=== PATIENT | male | born 1955 | race Caucasian/White ===

== ENCOUNTER 2020-08-27 14:13 | Inpatient (IN) | payer OTHER, MEDICARE ==
[~2020-08-27] VITALS: Ht 175.3 cm; Wt 89.4 kg
[2020-08-27 14:44] LABS: BASOPHILS ABSOLUTE AUTO 0.07 K/mm3 (0.00-0.23); BASOPHILS PERCENT AUTO 1 % (0-2); EOSINOPHILS ABSOLUTE AUTO 0.08 K/mm3 (0.00-0.68); EOSINOPHILS PERCENT AUTO 1 % (0-6); Hematocrit 41.4 % (37.0-53.0); Hemoglobin 13.6 g/dL (13.5-17.5); IMMATURE GRAN ABSOLUTE AUTO 0.08 K/mm3 (0.00-0.10); IMMATURE GRAN PERCENT AUTO 1 % (0-1); LYMPHOCYTES ABSOLUTE AUTO 2.35 K/mm3 (0.84-5.20); LYMPHOCYTES PERCENT AUTO 18 % (21-46); MONOCYTES ABSOLUTE AUTO 1.16 K/mm3 (0.16-1.47); MONOCYTES PERCENT AUTO 9 % (4-13); Mean Corpuscular HGB 29.4 pg (26.0-34.0); Mean Corpuscular HGB Conc 32.9 g/dL (31.5-36.5); Mean Corpuscular Volume 89 fL (80-100); Mean Platelet Volume 10.6 fL (9.1-12.4); NEUTROPHILS ABSOLUTE AUTO 9.28 K/mm3 (1.96-9.15); NEUTROPHILS PERCENT AUTO 71 % (41-73); Platelet Count 206 K/mm3 (150-400); RDW Coefficient Variation 12.5 % (11.7-14.2); RDW Standard Deviation 41.2 fL (35.1-46.3); Red Blood Cell Count 4.63 M/mm3 (4.30-5.90); White Blood Cell Count 13.02 K/mm3 (4.00-11.30)
[2020-08-27] MEDS ORDERED: Amlodipine Besyl5 MG PO (14:58)
[2020-08-27] MEDS ORDERED: ATOR10 PO (14:59)
[2020-08-27] MEDS ORDERED: BENA20 PO (14:59)
[2020-08-27] MEDS ORDERED: Aspirin EC81 MG PO (14:59)
[2020-08-27] MEDS ORDERED: WARF2.5 (15:00)
[2020-08-27] MEDS ORDERED: ZINC220 PO (15:00)
[2020-08-27] MEDS ORDERED: METO25ER PO (15:00)
[2020-08-27 15:14] LABS: International Normalized Ratio 1.47; Prothrombin Time Results 15.5 Sec (9.7-11.5)
[2020-08-27 15:17] LABS: Alanine Aminotransfer (ALT/SGP 26 U/L (12-78); Albumin, Blood 3.1 g/dL (3.4-5.0); Albumin/Globulin Ratio 0.8 (0.8-1.8); Alk Phos 45 U/L (50-136); Anion Gap 6 mmol/L (6-16); Aspartate Aminotrans (AST/SGOT 100 U/L (12-37); Bilirubin, Total 0.8 mg/dL (0.1-1.0); Blood Urea Nitrogen 20 mg/dL (8-24); Bun/Creatinine Ratio 19.4 (12.0-20.0); CO2, Blood 24 mmol/L (21-32); Calcium, Blood 8.7 mg/dL (8.5-10.1); Chloride, Blood 108 mmol/L (98-108); Creatinine, Blood 1.03 mg/dL (0.60-1.20); Globulin, Blood 3.9 g/dL (2.2-4.0); Glomerular Filtration Rate >60 (60-); Glucose, Blood 119 mg/dL (70-99); Potassium, Blood 3.9 mmol/L (3.5-5.5); Sodium, Blood 138 mmol/L (136-145)
[2020-08-27] MEDS ORDERED: BENAZEPRIL HCL40 M4 PO (15:22)
[2020-08-27] MEDS ORDERED: JANTOVEN3 M2 PO (15:23)
[2020-08-27] MEDS ORDERED: WARF3 PO (15:27)
--- NOTE | 2020-08-27 19:47 | NUR ---
Pt arrived from the ED. Lung sounds clear, normal sinus rhythm per news camera person. His right hip is painful, and at time of arrival the attending RN Ashley said that he had been given pain medication just before leaving the ED to come to PCU 5. Pt was transferred from stretcher to bed. No bruising noted on the right hip, but it is swollen. The pt denies any chest pain/discomfort, and does not have any dyspnea, either. He was given some food to eat for dinner and the plan is for NPO after midnight for surgery tomorrow with Dr. Arnold. Bedside report was given to VINCE Burkett.
[2020-08-28 03:10] LABS: BASOPHILS ABSOLUTE AUTO 0.06 K/mm3 (0.00-0.23); BASOPHILS PERCENT AUTO 1 % (0-2); EOSINOPHILS ABSOLUTE AUTO 0.12 K/mm3 (0.00-0.68); EOSINOPHILS PERCENT AUTO 1 % (0-6); Hematocrit 32.2 % (37.0-53.0); Hemoglobin 10.9 g/dL (13.5-17.5); IMMATURE GRAN ABSOLUTE AUTO 0.05 K/mm3 (0.00-0.10); IMMATURE GRAN PERCENT AUTO 1 % (0-1); LYMPHOCYTES ABSOLUTE AUTO 2.07 K/mm3 (0.84-5.20); LYMPHOCYTES PERCENT AUTO 20 % (21-46); MONOCYTES ABSOLUTE AUTO 1.01 K/mm3 (0.16-1.47); MONOCYTES PERCENT AUTO 10 % (4-13); Mean Corpuscular HGB 30.3 pg (26.0-34.0); Mean Corpuscular HGB Conc 33.9 g/dL (31.5-36.5); Mean Corpuscular Volume 89 fL (80-100); Mean Platelet Volume 10.4 fL (9.1-12.4); NEUTROPHILS ABSOLUTE AUTO 6.84 K/mm3 (1.96-9.15); NEUTROPHILS PERCENT AUTO 67 % (41-73); Platelet Count 171 K/mm3 (150-400); RDW Coefficient Variation 12.5 % (11.7-14.2); RDW Standard Deviation 41.3 fL (35.1-46.3); White Blood Cell Count 10.15 K/mm3 (4.00-11.30)
[2020-08-28 03:28] LABS: Anion Gap 4 mmol/L (6-16); Blood Urea Nitrogen 22 mg/dL (8-24); CHOL/HDL RATIO 3.1; CO2, Blood 26 mmol/L (21-32); Calcium, Blood 7.9 mg/dL (8.5-10.1); Chloride, Blood 111 mmol/L (98-108); Cholesterol 165 mg/dL (50-200); Creatinine, Blood 1.05 mg/dL (0.60-1.20); Glomerular Filtration Rate >60 (60-); Glucose, Blood 117 mg/dL (70-99); HDL Cholesterol 53 mg/dL (>39); LDL/HDL RATIO 1.7; Low Density Lipoprotein Chol 88 mg/dL (0-110); Potassium, Blood 3.8 mmol/L (3.5-5.5); Sodium, Blood 141 mmol/L (136-145); Triglycerides 119 mg/dL (30-160); Very Low Density Lipoprot Chol 23 mg/dL (6-32)
--- NOTE | 2020-08-28 06:25 | NUR ---
PER PATIENT QUINTANA CATHETER PLACED AT [facility] THEN PATIENT WAS TRANSFERRED TO [facility] WITH QUINTANA THE SAME DAY.
--- NOTE | 2020-08-28 06:26 | NUR ---
SHIFT SUMMARY PATIENT IS ALERT AND ORIENTED X4. Q2 HOUR TURNS. QUINTANA DRAINING TO GRAVITY. HEATING PAD PROVIDED FOR RIGHT HIP PAIN. MEDICATED FOR RIGHT HIP PAIN PER EMAR. HEPARIN gtt INFUSING. NO COMPLAINTS OF CP. 02 SATS 94% ON RA. VSS, NO ACUTE CHANGES. NPO @ MIDNIGHT. CALL LIGHT IN REACH.
--- NOTE | 2020-08-28 12:57 | NUR ---
CD MIXER HELPER PT WAS TAKEN TO CD MIXER HELPER FOR ANGIOGRAM FOR ELEVATED TROP AT APPROXMIATELY 1235. HEP GTT WAS DISCONTINUED AT THAT TIME. PT WAS TRANSFERRED VIA CART ACCOMPANIED BY CD MIXER HELPER RN.
--- NOTE | 2020-08-28 18:40 | NUR ---
SHIFT SUMMARY PT ARRIVED BACK FROM [facility] AND OR RECOVERY FOLLOWING ANGIOGRAM AND R HIP GAMMA NAILING AT APPROXIMATELY 1730. UPON ARRIVAL PT WAS ALERT, ORIENTED BUT DROWSY. PT HAS THREE SPONGE SURGICAL DRESSINGS IN PLACE THAT ARE C/D/I. PT ALSO HAS TR BAND IN PLACE THAT WAS PUT PRIOR TO THE HIP NAILING FOLLOWING THE STENT PLACEMENT AND ANGIO. THE TR BAND HAD 14 ML OF AIR IN WHEN PT ARRIVED TO THE PCU AND WAS FULLY DEFLATED AT 1841. NO SIGNS OF BLEEDING OR HEMATOMA, WHITE ARM BOARD IN PLACE, TR BAND IN PLACE, FULL SENSATION IN THE FINGERS. VS STABLE, PT ON 2L WHEN ARRIVING AND SATURATION WAS AT 97%, PT HAS BEEN TITRATED DOWN TO RA AND SATURATION IS 99%. PT IS RESTING AT THIS TIME AND DENIES CP OR ANY HIP PAIN.
[2020-08-29 03:52] LABS: BASOPHILS ABSOLUTE AUTO 0.01 K/mm3 (0.00-0.23); BASOPHILS PERCENT AUTO 0 % (0-2); EOSINOPHILS PERCENT AUTO 0 % (0-6); Hematocrit 30.6 % (37.0-53.0); Hemoglobin 10.3 g/dL (13.5-17.5); IMMATURE GRAN ABSOLUTE AUTO 0.05 K/mm3 (0.00-0.10); IMMATURE GRAN PERCENT AUTO 0 % (0-1); LYMPHOCYTES ABSOLUTE AUTO 0.99 K/mm3 (0.84-5.20); LYMPHOCYTES PERCENT AUTO 9 % (21-46); MONOCYTES ABSOLUTE AUTO 0.63 K/mm3 (0.16-1.47); MONOCYTES PERCENT AUTO 5 % (4-13); Mean Corpuscular HGB 30.4 pg (26.0-34.0); Mean Corpuscular HGB Conc 33.7 g/dL (31.5-36.5); Mean Corpuscular Volume 90 fL (80-100); Mean Platelet Volume 10.6 fL (9.1-12.4); NEUTROPHILS ABSOLUTE AUTO 10.03 K/mm3 (1.96-9.15); NEUTROPHILS PERCENT AUTO 86 % (41-73); Platelet Count 222 K/mm3 (150-400); RDW Coefficient Variation 12.4 % (11.7-14.2); RDW Standard Deviation 40.5 fL (35.1-46.3); Red Blood Cell Count 3.39 M/mm3 (4.30-5.90); White Blood Cell Count 11.71 K/mm3 (4.00-11.30)
[2020-08-29 04:07] LABS: Anion Gap 5 mmol/L (6-16); Blood Urea Nitrogen 19 mg/dL (8-24); Bun/Creatinine Ratio 20.2 (12.0-20.0); CO2, Blood 26 mmol/L (21-32); Calcium, Blood 8.2 mg/dL (8.5-10.1); Chloride, Blood 110 mmol/L (98-108); Creatinine, Blood 0.94 mg/dL (0.60-1.20); Glomerular Filtration Rate >60 (60-); Glucose, Blood 118 mg/dL (70-99); Potassium, Blood 4.3 mmol/L (3.5-5.5); Sodium, Blood 141 mmol/L (136-145)
--- NOTE | 2020-08-29 04:58 | NUR ---
SHIFT SUMMARY PATIENT IS ALERT AND ORIENTED X4. Q2 HOUR TURNS. MEDICATED FOR RIGHT HIP PAIN PER EMAR. RIGHT HIP SURGICAL DRESSING C/D/I. TR BAND REMOVED FROM LEFT RADIAL SITE @2123. SCANT AMOUNT OF BLOOD AND A SMALL HEMATOMA UNCHANGED THROUGHOUT THE SHIFT. CLEAR DRESSING APPLIED AND SPLINT IN PLACE. 02 SATS >95% ON RA. VSS, NO ACUTE CHANGES. CALL LIGHT IN REACH.
--- NOTE | 2020-08-29 09:41 | NUR ---
MORNING UPDATE, ASSUMED CARE FROM NOC RN PT DENIES PAIN THIS MORNING, STATING THE MEDICATION HE WAS GIVEN DURING NOC SHIFT WAS HELPFUL. VS STABLE THIS MORNING AND PT IS EAGER TO WORK WITH PHYISCAL THERAPY AND GET UP TODAY. PT HAS QUINTANA DRAINING TO GRAVITY. ARM BOARD IN PLACE ON LEFT RADIAL ACCESS SITE, TR BAND HAS BEEN REMOVED, NO SIGN OF BLEEDING AND FULL SENSATION IN THE HAND. RIGHT HIP WAS NAILED YESTERDAY 08/28/20, DRESSING IS C/D/I. PT RESTING IN BED AT THIS TIME
[2020-08-29 12:38] LABS: International Normalized Ratio 1.14; Prothrombin Time Results 12.2 Sec (9.7-11.5)
--- NOTE | 2020-08-29 18:39 | NUR ---
SHIFT SUMMARY PT HAS THE ARM BOARD IN PLACE TO HELP A REMINDER TO USE THE LEFT WRIST LESS FREQUENTLY. NO DRAINAGE OR SIGN OF HEMATOMA AT THE LEFT RADIAL ACCESS SITE POST ANGIO. PT HAS SURGICAL DRESSING IN PLACE ON THE RIGHT HIP THAT IS C/D/I. PT REPORTS MINOR PAIN, MOSTLY MUSCLE SORENESS AND HAS BEEN MEDICATED PER EMAR. PT WORKED WITH PHYSICAL THERAPY TODAY AND WAS ABLE TO MOVE FROM BED TO CHAIR WITH 1 PERSON WITH WALKER AND GAIT BELT, WEIGHT BEARING TOLERATED. PT HAS THE HEPARIN DRIP CONTINUING UNTIL THE INR IS GREATER THAN OR EQUAL TO 2.0. THE COUMADIN HAS BEEN STARTED THIS EVENING. PT IS RESTING IN BED AT THIS TIME. QUINTANA DRAINING AND PATENT, VS STABLE, PT ON RA
[2020-08-30 03:20] LABS: International Normalized Ratio 1.15; Prothrombin Time Results 12.3 Sec (9.7-11.5)
--- NOTE | 2020-08-30 07:20 | NUR ---
SHIFT SUMMARY PATIENT IS ALERT AND ORIENTED X4. REQUESTED WE LET HIM SLEEP AND HE WOULD REPOSITION HIMSELF. LEFT RADIAL SITE WNL, SPLINT IN PLACE. RIGHT HIP DRESSING C/D/I. PATIENT COMPLAINING OF RIGHT HIP PAIN, MEDICATED PER EMAR, PATIENT TEACHING PROVIDED ON OTHER PAIN RELIEF MEASURES. HEPARIN gtt INFUSING. VSS, NO ACUTE CHANGES. CALL LIGHT IN REACH.
--- NOTE | 2020-08-30 09:38 | NUR ---
UPDATE PT ALERT AND ORIENTED. VS STABLE. O2 SATS REMAIN ABOVE 90% ON RA. PT COMPLAINS OF PAIN TO HIP AND MEDICATED NEEDED. PT REPOSITIONED. QUINTANA PATENT AND DRAINING CLEAR YELLOW URINE. HEP GTT INFUSING PER ORDERS. BED ASSIGNMENT RECEIVED AND REPORT GIVEN TO MEDICAL FLOOR RN. PT TAKEN UP TO 329 BY BED.
--- NOTE | 2020-08-30 14:50 | NUR ---
TRANSFER NOTE PT ARRIVED TO UNIT AT APPROX 0945 FROM PCU 05. REPORT WAS OBTAINED FROM MICHAEL PRIOR TO TRANSFER. PT A&O. HEPARIN DRIP RUNNING UPON ARRIVAL TO UNIT. RUNNING 17 U/KG/HR PER PHARMACY. QUINTANA IN PLACE PATENT AND DRAINING CLEAR YELLOW URINE. PT DENIES ANY DISTRESS BESIDES SOME MILD DISCOMFORT OF THE R HIP, WAS GIVEN PRN PAIN MED PRIOR TO TRANSFER AND HAD A COOL PACK IN PLACE. CALL LIGHT WAS PLACED WITHIN REACH AFTER PT WAS SETTLED INTO BED. HEAD TO TOE ASSESSMENT WAS COMPLETED AND DOCUMENTED AT THIS TIME.
--- NOTE | 2020-08-30 14:57 | NUR ---
PT STATES HIS QUINTANA WAS PLACED AT [place] PRIOR TO HIS TRANSFER TO [facility]. PER MY CLINICAL JUDGEMENT THE PT NO LONGER HAS A NEED FOR THE QUINTANA. PT STATES HE WAS ABLE TO VOID ON HIS OWN WITHOUT DIFFICULTY PRIOR TO INSERTION. PT IS ALSO TWO-DAYS POST OP. QUINTANA REMOVED @ APPROX 1450 BY RN, 8cc OF SALINE WAS REMOVED FROM [place] AND QUINTANA WAS DC'D.
--- NOTE | 2020-08-30 17:17 | NUR ---
SHIFT SUMMARY NO ACUTE CHANGES THIS SHIFT, A&O, COOPERATIVE c CARE. PT FRUSTRATED REGARDING HEPARIN DRIP, HE WANTS IT DISCONTINUED. EDUCATED PT REGARDING THE PROCESS OF RESTARTING HIS COUMADIN AND STOPING THE HEPARIN. ENCOURAGED PT TO ASK HIS PROVIDER TOMORROW. HEPARIN CURRENTLY RUNNING @ 17 U/KG/HR. MARIANO REMOVED THIS SHIFT, PT HAS NOT YET VOIDED ON HIS OWN, STATES HE DOES NOT FEEL THE NEED TO GO YET. WILL CONTINUE TO MONITOR AND REPORT TO UNCOMING RN IF HE HAS OR HAS NOT VOIDED. PT IS CURRENTLY RESTING IN HIS RECLINER WATCHING TV, CALL LIGHT WITHIN REACH. CALLS APPROPRIATELY.
--- NOTE | 2020-08-31 04:36 | NUR ---
[employer] SUMMARY ADMITTED FOR R HIP FRACTURE AND NSTEMI. FULL CODE. HEPARIN INFUSING AT 17U/KG/HR. PT MEDICATED PER EMAR FOR R HIP PAIN AND CONSTIPATION. PT DID HAVE LARGE BOWEL MOVEMENT THIS SHIFT. URINATING WELL POST QUINTANA REMOVAL. VSS. NONDISTRESSED. DENIES CP OR SOB. WILL CONTINUE TO MONITOR.
--- NOTE | 2020-08-31 05:44 | NUR ---
I AGREE WITH DOCUMENTATION OF ABIMAEL BARBOSA STUDENT NURSE. YOLANDA BRADY RN
[2020-08-31 05:50] LABS: International Normalized Ratio 1.96; Prothrombin Time Results 20.4 Sec (9.7-11.5)
[2020-08-31 11:15] LABS: Mean Platelet Volume 10.3 fL (9.1-12.4); Platelet Count 275 K/mm3 (150-400)
[2020-08-31 11:24] LABS: International Normalized Ratio 2.19; Prothrombin Time Results 22.6 Sec (9.7-11.5)
--- NOTE | 2020-08-31 18:15 | NUR ---
Alert, oriented, pleasant and cheerful today. Cooperative with therapists and states he is very happy that he gets to go home tomorrow. States he had his fall one week ago, and has recieved very good care from all of the staff here at the hospital. He has a friend who will come from [facility] to pick him up and take him home tomorrow. Asked for pain medication once, which was after he had worked with the physical therapist, with good relief.
--- NOTE | 2020-08-31 21:01 | NUR ---
ASSUMPTION OF CARE. AOX3, PAIN NOW 3/10 AFTER TAKING PAIN MEDICATION. HIP DRESSINGS ALL INTACT, NO DRAINAGE, EDEMA. NO N/T. URINATING 175CC OUT, ORANGE URINE. ENCOURAGED FLUID INTAKE. BM THIS MORNING. HE IS EXCITED TO BE GOING HOME TOMORROW. READY FOR BED. CALL LIGHT IS IN REACH, DENIES ANY OTHER NEEDS AT THIS TIME.
--- NOTE | 2020-09-01 05:54 | NUR ---
SHIFT SUMMARY: VSS/AFEBRILE. PAIN MANAGED WITH CURRENT TREATMENT. DENIED ANY NEEDS ALL SHIFT. SLEPT WELL. DRESSINGS TO RIGHT HIP CDI. STILL SOME SWELLLING, NO N/T. USES WALKER WELL. HOPES TO GO HOME TODAY. NO OTHER CHANGES TO REPORT. CALL LIGHT IN REACH.
[2020-09-01 10:43] LABS: International Normalized Ratio 2.71; Prothrombin Time Results 27.7 Sec (9.7-11.5)
[2020-09-01] MEDS ORDERED: ATOR40TA PO (12:29)
[2020-09-01] MEDS ORDERED: CLOP75 PO (12:30)
[2020-09-01] MEDS ORDERED: HYDROCODONE-AC1 EA12 PO (12:30)
--- NOTE | 2020-09-01 13:41 | NUR ---
DISCHARGE DISCHARGE MEDICATIONS AND INSTRUCTIONS EXPLAINED TO PATIENT. HE STATED UNDERSTANDING. PCP FOLLOW UP SCHEDULED. DR. BASS OFFICE AND DR. REYES'S OFFICE TO CALL PATIENT AT HOME TO SCHEDULE FOLLOW UP APPOINTMENTS. IV REMOVED WITHOUT ISSUE. BELONGIGNS WITH PATIENT. PATIENT TRANSFERED TO PRIVATE VEHICLE VIA WHEELCHAIR.
== END 2020-09-01 12:53 | disposition home health service (06) | DRG 246 ==
LOC: ER 14:13 → MEDS 16:08 → PCU 16:08 → MEDS 08-30 09:38
PROVIDERS: Emergency Medicine; Orthopaedic Surgery; Student in an Organized Health Care Education/Training Program; ADMIT Hospitalist
PROC: 0QS636Z Reposition Right Upper Femur with Intramedullary Internal Fixation Device, Percutaneous Approach (ICD-10-PCS; 2020-08-28)
PROC: 4A023N7 Measurement of Cardiac Sampling and Pressure, Left Heart, Percutaneous Approach (ICD-10-PCS; 2020-08-28)
PROC: B2111ZZ Fluoroscopy of Multiple Coronary Arteries using Low Osmolar Contrast (ICD-10-PCS; 2020-08-28)
PROC: B2181ZZ Fluoroscopy of Left Internal Mammary Bypass Graft using Low Osmolar Contrast (ICD-10-PCS; 2020-08-28)
PROC: 027034Z Dilation of Coronary Artery, One Artery with Drug-eluting Intraluminal Device, Percutaneous Approach (ICD-10-PCS; principal; 2020-08-28 08:00)
DX: I21.4 Non-ST elevation (NSTEMI) myocardial infarction (principal); S72.141A Displaced intertrochanteric fracture of right femur, initial encounter for closed fracture; I50.20 Unspecified systolic (congestive) heart failure; T82.858A Stenosis of other vascular prosthetic devices, implants and grafts, initial encounter; I25.10 Atherosclerotic heart disease of native coronary artery without angina pectoris; I11.0 Hypertensive heart disease with heart failure; I25.5 Ischemic cardiomyopathy; E78.5 Hyperlipidemia, unspecified; Z79.82 Long term (current) use of aspirin; Z79.01 Long term (current) use of anticoagulants; Z87.442 Personal history of urinary calculi; Z95.2 Presence of prosthetic heart valve; Z95.1 Presence of aortocoronary bypass graft; Z79.899 Other long term (current) drug therapy; W18.30XA Fall on same level, unspecified, initial encounter
CPT/HCPCS: 36415; 71045; 76937; 80048; 80053; 80061; 83036; 84484; 85025; 85049; 85347; 85610; 85730; 92938; 93005; 93010; 93306; 93455; 94762; 96374-59; 96375-59; 97110; 97116; 97163; 97166; 97530; 99152; 99153; 99285-25; A9270; C1713; C1725; C1769; C1874; C1887; C1894; C9604; J0171; J0690; J1100; J1644; J2250; J2270; J2370; J2405; J2704; J3010; J3480; J7030; J7050; Q9967